=== PATIENT | female | born 1970 | race Caucasian/White ===

== ENCOUNTER 2021-03-30 08:58 | Outpatient (REF) | payer OTHER, SELFPAY ==
[2021-03-30 11:30] LABS: Glucose Urine UA NEG (NEG); Leukocyte Esterase Urine 3+ (NEG); Nitrite Urine NEG (NEG); Specific Gravity - Urine <= 1.005 (1.005-1.025); Urine Blood NEG (NEG); Urine Ketones NEG (NEG); Urine Protein NEG (NEG-TRACE)
[2021-03-30 11:44] LABS: Appearance Urine HAZY; Color Urine STRAW
[2021-03-30 11:54] LABS: Bacteria Urine 4+ /LPF; RBC Urine 0 /HPF (0); Squamous Epithelial Cell Urine 4+ /LPF
[2021-03-30 12:03] LABS: Alanine Aminotransferase 17 U/L (0-31); Alkaline Phosphatase 71 U/L (39-117); Anion Gap 12 (12-20); Aspartate Amino Transferase 15 U/L (5-31); Bilirubin Total 0.4 mg/dL (0.0-1.0); Blood Urea Nitrogen 10 mg/dL (9-16); Calcium 9.2 mg/dL (8.4-10.2); Carbon Dioxide 26 mmol/L (22-29); Chloride 107 mmol/L (96-108); Estimated Glomerular Filt Rate > 60; Glucose Fasting 80 mg/dL (60-99); Iron 66 mcg/dL (30-160); Percent Iron Saturation 20 % (15-50); Potassium 4.1 mmol/L (3.3-5.1); Rheumatoid Factor < 15.0 IU/mL (<15.0); Sodium 141 mmol/L (135-145); Total Iron Binding Capacity 328 mcg/dL (228-428); Total Protein 7.2 g/dL (6.5-8.0); Unsaturated Iron Binding 262 ug/dL
[2021-03-30 12:53] LABS: Erythrocyte Sedimentation Rate 12 MM/HR (0-20)
[2021-03-31 11:41] LABS: Antibody to SS-A Antigen <1.0 NEG AI (<1.0 NEG); Antibody to SS-B Antigen <1.0 NEG AI (<1.0 NEG); Scleroderma 70 Antibody <1.0 NEG AI (<1.0 NEG)
[2021-03-31 17:26] LABS: Cyclic Citrullinated Peptide <16 UNITS
[2021-04-01 14:02] LABS: Anti Nuclear Antibody Screen POSITIVE (NEGATIVE)
[2021-04-03 12:37] LABS: Smooth Muscle Antibody <20 U (<20)
== END 2021-03-30 08:59 | disposition home or self-care (01) ==
LOC: HO.HMGCLDS 08:58
PROVIDERS: PCP Internal Medicine; Visit Provider Internal Medicine
DX: Z00.00 Encounter for general adult medical examination without abnormal findings (principal); M25.50 Pain in unspecified joint; E03.9 Hypothyroidism, unspecified; F41.9 Anxiety disorder, unspecified
CPT/HCPCS: 36415; 80053; 81001; 82550; 83540; 85652; 86038; 86039; 86200; 86235; 86255; 86431

== ENCOUNTER 2021-08-29 16:41 | Outpatient (REF) | payer OTHER, SELFPAY ==
[2021-08-29 17:25] LABS: Influenza A PCR NEGATIVE (Negative); Influenza B PCR NEGATIVE (Negative); Resp Syncy Virus RNA Qual PCR NEGATIVE (Negative); SARS COV2 PCR INHOUSE NEGATIVE (Negative)
== END 2021-08-29 16:42 | disposition home or self-care (01) ==
LOC: HO.LNP 16:41
PROVIDERS: Visit Provider Physician Assistant Medical
DX: Z20.822 Contact with and (suspected) exposure to COVID-19 (principal); J06.9 Acute upper respiratory infection, unspecified
CPT/HCPCS: 0241U

== ENCOUNTER 2021-08-31 13:00 | Outpatient (REF) | payer OTHER, SELFPAY ==
--- NOTE | ~2021-08-31 | XR_ITS ---
EXAMINATION: XR CHEST CLINICAL INFORMATION: Cough COMPARISON: November 17, 2019 TECHNIQUE: 2 views of the chest were obtained. FINDINGS: No significant abnormality is noted involving the heart, lungs, mediastinum, bony thorax or soft tissues. XR/XR chest 2V IMPRESSION: No acute disease.
[2021-08-31 14:46] LABS: Influenza A PCR NEGATIVE (Negative); Influenza B PCR NEGATIVE (Negative); Resp Syncy Virus RNA Qual PCR NEGATIVE (Negative); SARS COV2 PCR INHOUSE NEGATIVE (Negative)
== END 2021-08-31 13:01 | disposition home or self-care (01) ==
LOC: HO.HMGCX 13:00
PROVIDERS: PCP Internal Medicine; Visit Provider Physician Assistant Medical
DX: B34.9 Viral infection, unspecified (principal); R05.9 Cough, unspecified; J06.9 Acute upper respiratory infection, unspecified
CPT/HCPCS: 0241U; 36415; 71046

== ENCOUNTER 2022-04-14 08:40 | Outpatient (REF) | payer OTHER, SELFPAY ==
--- NOTE | ~2022-04-14 | XR_ITS ---
EXAMINATION: XR CHEST CLINICAL INFORMATION: Acute upper respiratory infection. COMPARISON: 08/31/2021 chest radiographs. TECHNIQUE: 2 views of the chest were obtained. FINDINGS: No significant abnormality is noted involving the heart, lungs, mediastinum, bony thorax or soft tissues. XR/XR chest 2V IMPRESSION: No acute cardiopulmonary process.
== END 2022-04-14 08:41 | disposition home or self-care (01) ==
LOC: HO.HMGCX 08:40
PROVIDERS: PCP Internal Medicine; Visit Provider Physician Assistant
DX: J06.9 Acute upper respiratory infection, unspecified (principal)
CPT/HCPCS: 71046